=== PATIENT | female | born 1975 | race Hispanic/Latino ===

== ENCOUNTER 2022-03-19 17:50 | Emergency (ER) | payer OTHER ==
[~2022-03-19] VITALS: Ht 170.2 cm; Wt 76.7 kg
[~2022-03-19 17:50] MED LIST: PHENTERMINE HCL15 MG PO
[2022-03-19] MEDS ORDERED: IBUPROFEN 600 MG TAB PO STA (18:09)
== END 2022-03-19 19:09 | disposition home or self-care (01) ==
LOC: ER 18:10
DX: S93.401A Sprain of unspecified ligament of right ankle, initial encounter (principal); V43.52XA Car driver injured in collision with other type car in traffic accident, initial encounter; Y92.410 Unspecified street and highway as the place of occurrence of the external cause
CPT/HCPCS: 99284

== ENCOUNTER 2025-06-12 00:18 | Emergency (ER) | payer OTHER ==
[~2025-06-12] VITALS: Ht 170.2 cm; Wt 62.6 kg
[2025-06-12 00:18] VITALS: TEMP 98.6
[2025-06-12] MEDS ORDERED: IOPAMIDOL 370 MG/ML 100 ML INFUS..BTL INJ ONE (00:36)
[2025-06-12] MEDS: ONDANSETRON HCL INJ 2MG/ML 2ML 2 MG/ML VIAL IV STA (00:47)
[2025-06-12 00:48] LABS: BASOPHILS % 0.2 % (0.0-1.0); EOSINOPHILS % 1.9 % (0.0-6.0); LYMPHOCYTES % 35.7 % (18.0-39.1); MONOCYTES % 7.8 % (4.4-11.3); NEUTROPHILS % 54.1 % (38.7-80.0); RED CELL DISTRIBUTION WIDTH 14.4 % (11.7-14.4)
[2025-06-12 01:12] LABS: EST GLOMERULAR FILTRATION RATE 84.0 ML/MIN (>=60)
[2025-06-12 01:30] VITALS: PULSE 65; RESP 16
[2025-06-12] MEDS ORDERED: ONDANSETRON ODT4 MG SL (01:52)
[2025-06-12] MEDS ORDERED: CYCLOBENZAPRINE5 MG PO (01:52)
[2025-06-12 02:10] VITALS: BP 92/56; PULSE 88; RESP 16; TEMP 97.9; O2SAT 100
== END 2025-06-12 01:59 | disposition home or self-care (01) ==
LOC: ER 00:22
DX: R07.89 Other chest pain (principal); S20.212A Contusion of left front wall of thorax, initial encounter; S30.0XXA Contusion of lower back and pelvis, initial encounter; S80.12XA Contusion of left lower leg, initial encounter; S80.11XA Contusion of right lower leg, initial encounter; V43.53XA Car driver injured in collision with pick-up truck in traffic accident, initial encounter; Y92.488 Other paved roadways as the place of occurrence of the external cause; E03.9 Hypothyroidism, unspecified; Z85.72 Personal history of non-Hodgkin lymphomas
CPT/HCPCS: 36415; 70450; 71260; 72125; 74177; 80053; 85025; 99284; J2405; Q9967